=== PATIENT | male | born 1985 | race American Indian/Alaskan Native ===

== ENCOUNTER 2017-02-21 01:19 | Emergency (ER) | payer MEDICARE ==
[2017-02-21 01:19] VITALS: BMI 19.8
[2017-02-21 01:27] VITALS: RESP 18
--- NOTE | 2017-02-21 01:57 | ED PDOC ---
HPI: Psych/Substance Abuse Time Seen by Provider: 02/21/17 01:28 Chief Complaint (Nursing): Substance Abuse Chief Complaint (Provider): Medical evaluation Additional Complaint(s): The patient is a 31yo male, brought to the ED for evaluation s/p finding the patient sitting on the sidewalk. Patient admits to drinking beer earlier today and denies any drug usage. Patient offers no medical complaints at present. Past Medical History Reviewed: Historical Data, Nursing Documentation, Vital Signs Vital Signs: Last Vital Signs Temp 98.2 F 02/21/17 01:25 Pulse 136 H 02/21/17 01:25 Resp 18 02/21/17 01:25 BP 131/88 02/21/17 01:25 Pulse Ox 98 02/21/17 01:25 - Medical History PMH: Bipolar Disorder, Depression, Paranoia, Schizophrenia Denies: Alzheimer's Disease, Anemia, Anxiety, Arthritis, Asthma, Bronchitis, CAD, Cardia Arrhythmia, CHF, COPD, Crohn's Disease, Dementia, Diabetes, Diverticulitis, Emphysema, Fibromyalgia, Fractures, Gastrointestinal Ulcer, Gall Bladder Disease, Hepatitis, Hiatal Hernia, HIV, HTN, Hypercholesterolemia, Hyperthyroidism, Hypothyroidism, Kidney Stones, Migraine, Mitral Valve Prolapse , Osteoporosis, Pancreatitis, Parkinson's Disease, Peripheral Edema, Pneumonia, Post Traumatic Stress Disorder, Chronic Kidney Disease, Seizures, Sickle Cell Disease, Sexually Transmitted Disease, Sleep Apnea, TIA - Surgical History Surgical History: Denies: Appendectomy, Cholecystectomy, Coronary Stent, Pacemaker, Tonsillectomy - Family History Family History: States: Unknown Family Hx - Immunization History Hx Tetanus Toxoid Vaccination: Yes (3 months ago) - Home Medications Home Medications: Ambulatory Orders Medication Instructions Recorded No Known Home Med 06/29/16 - Allergies Allergies/Adverse Reactions: Allergies Allergy/AdvReac Type Severity Reaction Status Date / Time Penicillins Allergy RASH Verified 06/18/16 21:05 Review of Systems ROS Statement: Except As Marked, All Systems Reviewed And Found Negative Psych: Positive for: Other (admits to drinking beer earlier today) Physical Exam - Reviewed Vital Signs Reviewed: Yes - Physical Exam Appears: Positive for: Well, Non-toxic, No Acute Distress Head Exam: Positive for: ATRAUMATIC, NORMAL INSPECTION, NORMOCEPHALIC Skin: Positive for: Normal Color Eye Exam: Positive for: Normal appearance Neck: Positive for: Normal Cardiovascular/Chest: Positive for: Regular Rate, Rhythm Respiratory: Negative for: Respiratory Distress Neurologic/Psych: Positive for: Alert, Oriented, Mood/Affect (calm and cooperative), Gait (steady gait, no slurred speech). Negative for: Motor/ Sensory Deficits - ECG O2 Sat by Pulse Oximetry: 98 (RA) Pulse Ox Interpretation: Normal Medical Decision Making Medical Decision Making: Time: 0155 Impression: Medical evaluation Plan: * Patient with no clinical indication of acute intoxications. Patient with normal vital signs, is alert and oriented with steady gait. Based on clinical presentation, patient does not have any need for emergent care. * Will observe patient and re-check vitals. * Stable for discharge home. Scribe Attestation: Documented by Teresa Joyner, acting as a scribe for Renan Krishnan MD. Provider Scribe Attestation: All medical record entries made by the Scribe were at my direction and personally dictated by me. I have reviewed the chart and agree that the record accurately reflects my personal performance of the history, physical exam, medical decision making, and the department course for this patient. I have also personally directed, reviewed, and agree with the discharge instructions and disposition. Disposition - Clinical Impression Clinical Impression: Alcohol use Doctor Will See Patient In The: Office Counseled Patient/Family Regarding: Studies Performed, Diagnosis, Need For Followup - Disposition Referrals: [facility] [Outside] Disposition: Routine/Home Disposition Time: 02:28 Condition: GOOD Additional Instructions: Follow up with your PCP in 2-3 days. Instructions: Abuse of Alcohol (ED)
[2017-02-21 02:00] VITALS: BP 137/85; PULSE 101
[2017-02-21 02:01] VITALS: TEMP 98.2
[2017-02-21 02:29] VITALS: O2SAT 98
== END 2017-02-21 02:01 | disposition home or self-care (01) ==
LOC: H.ER 01:19
DX: F10.129 Alcohol abuse with intoxication, unspecified (principal); F20.9 Schizophrenia, unspecified; F31.9 Bipolar disorder, unspecified; Z88.0 Allergy status to penicillin

== ENCOUNTER 2017-03-02 14:57 | Emergency (ER) | payer MEDICARE ==
[2017-03-02 14:57] VITALS: BMI 19.8
[2017-03-02 15:20] VITALS: BP 125/71; PULSE 65; RESP 18; TEMP 98.2; O2SAT 99
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
[2017-03-02 16:08] LABS: BASO % 0.6 % (0.0-2.0); EOS # 0.1 K/uL (0.0-0.7); EOS % 2.2 % (0.0-4.0); HEMATOCRIT 41.2 % (35.0-51.0); LYMPH # 2.8 K/uL (1.0-4.3); LYMPH % 41.3 % (20.0-40.0); MEAN CELL VOLUME 94.3 fl (80.0-94.0); MEAN CORPUSCULAR HEMOGLOBIN 31.8 pg (27.0-31.0); MEAN CORPUSCULAR HGB CONC 33.7 g/dL (33.0-37.0); MONO # 0.9 K/uL (0.0-0.8); MONO % 13.2 % (0.0-10.0); NEUT # 2.9 K/uL (1.8-7.0); NEUT % 42.7 % (50.0-75.0); NRBC % 0.1 % (0.0-0.0); RED CELL DISTRIBUTION WIDTH 13.3 % (11.5-14.5); WHITE BLOOD COUNT 6.7 K/uL (4.8-10.8)
[2017-03-02 16:18] LABS: ALB/GLOB RATIO 1.4 (1.0-2.1); ALCOHOL SERUM < 10 mg/dl (0-10); ALKALINE PHOSPHATASE 113 U/L (38-126); ALT/SGPT 44 U/L (21-72); AST/SGOT 27 U/L (17-59); BILIRUBIN,TOTAL 0.9 mg/dl (0.2-1.3); BLOOD UREA NITROGEN 15 mg/dl (9-20); CALCIUM 9.4 mg/dL (8.4-10.2); CARBON DIOXIDE 31 mmol/L (22-30); CHLORIDE 101 mmol/L (98-107); GFR AFRICAN-AMERICAN > 60; GLUCOSE,RANDOM 89 mg/dL (75-110); POTASSIUM 4.2 MMOL/L (3.6-5.0); SODIUM 137 mmol/l (132-148); TOTAL PROTEIN 7.5 G/DL (6.3-8.2)
== END 2017-03-02 17:10 | disposition home or self-care (01) ==
LOC: H.ER 14:57
DX: F20.9 Schizophrenia, unspecified (principal); F31.9 Bipolar disorder, unspecified; Z88.0 Allergy status to penicillin
CPT/HCPCS: 80053; 85025; 99282; G0480

== ENCOUNTER 2017-10-06 02:08 | Emergency (ER) | payer MEDICARE ==
[2017-10-06 02:08] VITALS: BMI 19.8
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
[2017-10-06 04:22] LABS: BASO # 0.1 K/uL (0.0-0.2); BASO % 1.1 % (0.0-2.0); EOS # 0.1 K/uL (0.0-0.7); EOS % 1.3 % (0.0-4.0); HEMOGLOBIN 13.5 g/dL (12.0-18.0); LYMPH # 3.1 K/uL (1.0-4.3); LYMPH % 40.5 % (20.0-40.0); MEAN CELL VOLUME 93.4 fl (80.0-94.0); MEAN CORPUSCULAR HEMOGLOBIN 31.6 pg (27.0-31.0); MEAN CORPUSCULAR HGB CONC 33.8 g/dL (33.0-37.0); MEAN PLATELET VOLUME 9.2 fl (7.2-11.7); MONO # 1.1 K/uL (0.0-0.8); MONO % 13.9 % (0.0-10.0); NEUT # 3.3 K/uL (1.8-7.0); NEUT % 43.2 % (50.0-75.0); NRBC % 0.2 % (0.0-0.0); RBC 4.27 Mil/uL (4.40-5.90); WHITE BLOOD COUNT 7.7 K/uL (4.8-10.8)
[2017-10-06 04:31] LABS: ACETAMINOPHEN < 10.0 ug/ml (10.0-30.0); SALICYLATE < 1.0 mg/dl
[2017-10-06 04:32] LABS: BLOOD UREA NITROGEN 24 mg/dl (9-20); CALCIUM 9.8 mg/dL (8.4-10.2); GFR AFRICAN-AMERICAN > 60; GFR NON-AFRICAN AMERICAN > 60
[2017-10-06 05:58] LABS: SQUAMOUS EPITHIAL < 1 /hpf (0-5); URINE BACTERIA RARE (<OCC); URINE BILIRUBIN NEGATIVE (NEGATIVE); URINE BLOOD NEGATIVE (NEGATIVE); URINE CLARITY CLOUDY (Clear); URINE COLOR YELLOW (YELLOW); URINE GLUCOSE (UA) NEG (Normal); URINE LEUKOCYTE ESTERASE NEG Leu/uL (Negative); URINE NITRATE NEGATIVE (NEGATIVE); URINE PROTEIN 100 mg/dL (NEGATIVE); URINE UROBILINOGEN 0.2-1.0 mg/dL (0.2-1.0)
[2017-10-06 06:02] LABS: OPIATES, UR NEGATIVE (NEGATIVE)
[2017-10-06 06:09] LABS: BARBITURATES, UR NEGATIVE (NEGATIVE); BENZODIAZEPINES, UR NEGATIVE (NEGATIVE); PHENCYCLIDINE, UR NEGATIVE (NEGATIVE)
[2017-10-06] MEDS ORDERED: Sodium Chloride 0.9% 1,000 ML IV STA (06:41)
[2017-10-06 06:53] VITALS: O2SAT 98
--- NOTE | 2017-10-06 08:22 | ED PDOC ---
- Laboratory Results Result Diagrams: 10/06/17 04:12 10/06/17 04:12 Interpretation Of Abn Labs: amphetamines - ECG O2 Sat by Pulse Oximetry: 98 Pulse Ox Interpretation: Normal - Progress ED Course And Treament: 821: Stable. Alert. Pending crisis. Took over care from Dr. Tineo. 954: Stable. AAOx3. Pain free. Tolerated PO. Fu with pcp. Crisis saw pt. Does not meet criteria for admit. Disposition Counseled Patient/Family Regarding: Studies Performed, Diagnosis - Clinical Impression Clinical Impression: Schizophrenia, simple, Drug abuse - POA Present On Arrival: None - Disposition Referrals: [facility] [Outside] - 10/07/17 Disposition: Routine/Home Disposition Time: 09:56 Condition: STABLE Additional Instructions: Return if not better in 3 days. Instructions: Drug Abuse and Drug Addiction (DC), Schizophrenia
[2017-10-06 11:02] VITALS: BP 101/53; PULSE 99; RESP 20; TEMP 97.8
--- NOTE | 2017-10-07 12:13 | CARD ---
APPROVED REPORT EKG Measurement Heart [id number] <Conclusion> Normal sinus rhythm with sinus arrhythmia Normal ECG
== END 2017-10-06 10:10 | disposition home or self-care (01) ==
LOC: H.ER 02:08
DX: F20.9 Schizophrenia, unspecified (principal); F31.9 Bipolar disorder, unspecified; Z88.0 Allergy status to penicillin; F19.10 Other psychoactive substance abuse, uncomplicated
CPT/HCPCS: 80048; 81003; 85025; 93005; 96372; 99285; G0480; J1630; J7040

== ENCOUNTER 2017-10-06 21:04 | Emergency (ER) | payer MEDICARE ==
[2017-10-06 21:05] VITALS: BMI 19.8
[2017-10-06 21:18] VITALS: BP 132/89; PULSE 91; RESP 18; TEMP 98.5; O2SAT 97
--- NOTE | 2017-10-06 21:52 | ED PDOC ---
HPI: Psych/Substance Abuse Time Seen by Provider: 10/06/17 21:21 Chief Complaint (Nursing): Psychiatric Evaluation Chief Complaint (Provider): Suicidal ideation Suicide/Self Injury Attempted (Context): None Associated Symptoms: Suicidal Thoughts Additional Complaint(s): 31yo male, brought to ER by EMS for evaluation after patient expressed suicidal ideation. Patient reports he is feeling "suey" and when asked to explain further , he reports he is "feeling suicidal. He has no medical complaints. Past Medical History Reviewed: Historical Data, Nursing Documentation, Vital Signs Vital Signs: Last Vital Signs Temp 98.5 F 10/06/17 21:14 Pulse 91 H 10/06/17 21:14 Resp 18 10/06/17 21:14 BP 132/89 10/06/17 21:14 Pulse Ox 97 10/06/17 21:14 - Medical History PMH: Bipolar Disorder, Depression, Paranoia, Schizophrenia Denies: Alzheimer's Disease, Anemia, Anxiety, Arthritis, Asthma, Bronchitis, CAD, Cardia Arrhythmia, CHF, COPD, Crohn's Disease, Dementia, Diabetes, Diverticulitis, Emphysema, Fibromyalgia, Fractures, Gastrointestinal Ulcer, Gall Bladder Disease, Hepatitis, Hiatal Hernia, HIV, HTN, Hypercholesterolemia, Hyperthyroidism, Hypothyroidism, Kidney Stones, Migraine, Mitral Valve Prolapse , Osteoporosis, Pancreatitis, Parkinson's Disease, Peripheral Edema, Pneumonia, Post Traumatic Stress Disorder, Chronic Kidney Disease, Seizures, Sickle Cell Disease, Sexually Transmitted Disease, Sleep Apnea, TIA - Surgical History Surgical History: Denies: Appendectomy, Cholecystectomy, Coronary Stent, Pacemaker, Tonsillectomy - Family History Family History: States: Unknown Family Hx - Immunization History Hx Tetanus Toxoid Vaccination: Yes (3 months ago) - Home Medications Home Medications: Ambulatory Orders Medication Instructions Recorded No Known Home Med 06/29/16 - Allergies Allergies/Adverse Reactions: Allergies Allergy/AdvReac Type Severity Reaction Status Date / Time Penicillins Allergy RASH Verified 06/18/16 21:05 Review of Systems Cardiovascular: Negative for: Chest Pain Respiratory: Negative for: Shortness of Breath Gastrointestinal: Negative for: Abdominal Pain Psych: Positive for: Suicidal ideation Physical Exam - Reviewed Nursing Documentation Reviewed: Yes Vital Signs Reviewed: Yes - Physical Exam Appears: Positive for: No Acute Distress Head Exam: Positive for: NORMAL INSPECTION Skin: Positive for: Normal Color Eye Exam: Positive for: Normal appearance Neck: Positive for: Supple Cardiovascular/Chest: Positive for: Regular Rate, Rhythm Respiratory: Positive for: Normal Breath Sounds. Negative for: Respiratory Distress Neurologic/Psych: Positive for: Alert, Oriented - ECG O2 Sat by Pulse Oximetry: 97 (RA) Pulse Ox Interpretation: Normal Medical Decision Making Medical Decision Making: Impression: Suicidal ideation Plan: -- Crisis evaluation Scribe Attestation: Documented by Teresa Joyner acting as a scribe for BE Wilcox Provider Attestation: All medical record entries made by the Scribe were at my direction and personally dictated by me. I have reviewed the chart and agree that the record accurately reflects my personal performance of the history, physical exam, medical decision making, and the department course for this patient. I have also personally directed, reviewed, and agree with the discharge instructions and disposition. Disposition - Clinical Impression Clinical Impression: Schizoaffective disorder - Patient ED Disposition Is Patient to be Admitted: No - Disposition Disposition: Routine/Home Disposition Time: 22:12 Condition: GOOD Instructions: Schizoaffective Disorder Forms: [employer] (Slovak)
== END 2017-10-06 22:24 | disposition home or self-care (01) ==
LOC: H.ER 21:04
DX: R45.851 Suicidal ideations (principal); F25.9 Schizoaffective disorder, unspecified; F31.9 Bipolar disorder, unspecified; Z88.0 Allergy status to penicillin

== ENCOUNTER 2017-12-05 10:36 | Emergency (ER) | payer MEDICARE ==
[2017-12-05 11:07] VITALS: BMI 20.5
[2017-12-05 11:09] VITALS: BP 124/73; PULSE 107; RESP 17; TEMP 98.1; O2SAT 96
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
== END 2017-12-05 12:55 | disposition home or self-care (01) ==
LOC: H.ER 10:36
DX: S60.221A Contusion of right hand, initial encounter (principal); Y04.0XXA Assault by unarmed brawl or fight, initial encounter; Y92.89 Other specified places as the place of occurrence of the external cause; F20.9 Schizophrenia, unspecified; F31.9 Bipolar disorder, unspecified; Z88.0 Allergy status to penicillin

== ENCOUNTER 2017-12-07 20:07 | Emergency (ER) | payer MEDICARE ==
[2017-12-07 20:07] VITALS: BMI 20.5
[2017-12-07 20:16] VITALS: BP 132/85; RESP 18; TEMP 98.5
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
[2017-12-07 22:42] LABS: BARBITURATES, UR NEGATIVE (NEGATIVE); BENZODIAZEPINES, UR NEGATIVE (NEGATIVE); OPIATES, UR NEGATIVE (NEGATIVE); PHENCYCLIDINE, UR NEGATIVE (NEGATIVE)
[2017-12-07 23:29] VITALS: PULSE 85; O2SAT 97
== END 2017-12-07 23:53 | disposition home or self-care (01) ==
LOC: H.ER 20:07
DX: F20.9 Schizophrenia, unspecified (principal); F31.9 Bipolar disorder, unspecified; Z88.0 Allergy status to penicillin
CPT/HCPCS: 99283; G0480

== ENCOUNTER 2018-06-05 12:14 | Emergency (ER) | payer MEDICARE ==
[2018-06-05 12:15] VITALS: BMI 20.5
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
[2018-06-05 17:49] VITALS: BP 122/69; PULSE 95; RESP 18; TEMP 98.2; O2SAT 97
== END 2018-06-05 17:20 | disposition home or self-care (01) ==
LOC: H.ER 12:14
DX: F20.9 Schizophrenia, unspecified (principal); F43.20 Adjustment disorder, unspecified

== ENCOUNTER 2018-08-03 17:19 | Emergency (ER) | payer MEDICARE ==
[2018-08-03 17:26] VITALS: BMI 20.5
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
[2018-08-03 18:34] LABS: BASO # 0.1 K/uL (0.0-0.2); BASO % 1.1 % (0.0-2.0); EOS # 0.2 K/uL (0.0-0.7); EOS % 3.4 % (0.0-4.0); HEMOGLOBIN 12.1 g/dL (12.0-18.0); LYMPH # 2.1 K/uL (1.0-4.3); LYMPH % 33.3 % (20.0-40.0); MEAN CELL VOLUME 96.7 fl (80.0-94.0); MEAN CORPUSCULAR HEMOGLOBIN 32.3 pg (27.0-31.0); MEAN CORPUSCULAR HGB CONC 33.4 g/dL (33.0-37.0); MEAN PLATELET VOLUME 7.2 fl (7.2-11.7); MONO # 0.8 K/uL (0.0-0.8); MONO % 12.6 % (0.0-10.0); NEUT # 3.1 K/uL (1.8-7.0); NEUT % 49.6 % (50.0-75.0); NRBC % 0.1 % (0.0-0.0); RBC 3.73 Mil/uL (4.40-5.90); RED CELL DISTRIBUTION WIDTH 13.1 % (11.5-14.5); WHITE BLOOD COUNT 6.2 K/uL (4.8-10.8)
[2018-08-03 18:43] LABS: ALB/GLOB RATIO 1.2 (1.0-2.1); ALBUMIN 3.9 g/dL (3.5-5.0); ALT/SGPT 49 U/L (21-72); AST/SGOT 28 U/L (17-59); BLOOD UREA NITROGEN 21 mg/dl (9-20); CALCIUM 9.1 mg/dL (8.4-10.2); GFR NON-AFRICAN AMERICAN > 60
[2018-08-03 21:03] LABS: URINE BILIRUBIN NEGATIVE (NEGATIVE); URINE BLOOD NEGATIVE (NEGATIVE); URINE CLARITY CLEAR (Clear); URINE COLOR YELLOW (YELLOW); URINE GLUCOSE (UA) NEG (NEGATIVE); URINE LEUKOCYTE ESTERASE NEG Leu/uL (Negative); URINE PROTEIN NEGATIVE (NEGATIVE)
[2018-08-03 21:46] LABS: BARBITURATES, UR NEGATIVE (NEGATIVE); BENZODIAZEPINES, UR NEGATIVE (NEGATIVE); OPIATES, UR NEGATIVE (NEGATIVE); PHENCYCLIDINE, UR NEGATIVE (NEGATIVE)
--- NOTE | 2018-08-04 00:11 | ED PDOC ---
- Laboratory Results Result Diagrams: 08/03/18 18:28 08/03/18 18:28 - ECG O2 Sat by Pulse Oximetry: 97 (RA) Pulse Ox Interpretation: Normal Medical Decision Making Medical Decision Making: Case endorsed to telegraphic typewriter installer, Amador MENDES, at 0000 due to shift change. Patient pending [facility] screening. Patient medically cleared for psychiatric evaluation by [facility]. Patient resting comfortably at this time. 1:1 observation continued. 0200 Patient sleeping comfortably; no distress noted. 0400 Patient sleeping comfortably; no distress noted. 0600 Patient sleeping comfortably; no distress noted. Continuation of care per Dr Cameron Baca. 0700 Case endorsed to ED MD Tineo pending [facility] screening and further disposition. Disposition Counseled Patient/Family Regarding: Studies Performed, Diagnosis - Clinical Impression Clinical Impression: Patient needs psychiatric hold for evaluation, Schizoaffective disorder - POA Present On Arrival: None - Disposition Disposition: Transfer of Care (to ED MD Tineo pending [facility] screening and further disposition.) Disposition Time: 07:00 Condition: FAIR Results - Lab Results Lab Results: 08/03/18 08/03/18 08/03/18 20:45 20:45 18:28 WBC 6.2 RBC 3.73 L Hgb 12.1 Hct 36.1 MCV 96.7 H D MCH 32.3 H MCHC 33.4 RDW 13.1 Plt Count 301 MPV 7.2 Neut % (Auto) 49.6 L Lymph % (Auto) 33.3 [place] % (Auto) 12.6 H Eos % (Auto) 3.4 Baso % (Auto) 1.1 Neut # (Auto) 3.1 Lymph # (Auto) 2.1 [place] # (Auto) 0.8 Eos # (Auto) 0.2 Baso # (Auto) 0.1 Sodium Potassium Chloride Carbon Dioxide Anion Gap BUN Creatinine Est GFR ( Amer) Est GFR (Non-Af Amer) Random Glucose Calcium Total Bilirubin AST ALT Alkaline Phosphatase Total Protein Albumin Globulin Albumin/Globulin Ratio Urine Color Yellow Urine Clarity Clear Urine pH 7.0 Ur Specific [place] 1.027 Urine Protein Negative Urine Glucose (UA) Neg Urine Ketones Negative Urine Blood Negative Urine Nitrate Negative Urine Bilirubin Negative Urine Urobilinogen 4.0 Ur Leukocyte Esterase Neg Urine RBC (Auto) 3 Urine Microscopic WBC 2 Urine Opiates Screen Negative Urine Methadone Screen Negative Ur Barbiturates Screen Negative Ur Phencyclidine Scrn Negative Ur Amphetamines Screen Negative U Benzodiazepines Scrn Negative U Oth Cocaine Metabols Negative U Cannabinoids Screen Negative Alcohol, Quantitative 08/03/18 18:28 WBC RBC Hgb Hct MCV MCH MCHC RDW Plt Count MPV Neut % (Auto) Lymph % (Auto) [place] % (Auto) Eos % (Auto) Baso % (Auto) Neut # (Auto) Lymph # (Auto) [place] # (Auto) Eos # (Auto) Baso # (Auto) Sodium 144 Potassium 4.2 Chloride 106 Carbon Dioxide 29 Anion Gap 13 BUN 21 H Creatinine 0.9 Est GFR ( Amer) > 60 Est GFR (Non-Af Amer) > 60 Random Glucose 90 Calcium 9.1 Total Bilirubin 0.4 AST 28 ALT 49 Alkaline Phosphatase 168 H Total Protein 7.1 Albumin 3.9 Globulin 3.3 Albumin/Globulin Ratio 1.2 Urine Color Urine Clarity Urine pH Ur Specific [place] Urine Protein Urine Glucose (UA) Urine Ketones Urine Blood Urine Nitrate Urine Bilirubin Urine Urobilinogen Ur Leukocyte Esterase Urine RBC (Auto) Urine Microscopic WBC Urine Opiates Screen Urine Methadone Screen Ur Barbiturates Screen Ur Phencyclidine Scrn Ur Amphetamines Screen U Benzodiazepines Scrn U Oth Cocaine Metabols U Cannabinoids Screen Alcohol, Quantitative < 10
--- NOTE | 2018-08-04 10:43 | CP.PCM.CON ---
History of Present Illness - History of Present Illness History of Present Illness: Psychiatry consult note CC: "I was talking to the birds." HPI: 32 yo male w/ h/o schizoaffective disorder, presents acutely disorganized, bizarre, psychotic, reports that he was brought to the hospital for talking to pigeons. Patient is a poor historian and has been non-compliant with treatment and medications. Additional history from the chart: 32 year old Black male presenting to the ED after [place] Pt was noted to be making bizarre statements and arguing with a bystander. Pt has a hx of Schizoaffective Disorder. Pt is uncooperative in the ED and refuses respond to questions. When pt did speak, his statements were disorganized, tangential, and illogical. Pt also defecated and urinated in his room in the ED. Pts thought process is blocked. Crisis is unable to assess presence of SI/HI, as pt refused to respond to any questions. Pt has hx of fleeting SI without plan or intent, however pt has no hx of suicide attempts or self harm. Pt admits to smoking marijuana about 2 days ago, however denies alcohol use. Pts BAL is negative. Pt has hx of past amphetamine and MDMA use. Pt was recently discharged from [facility] on 07/29/18 following 7 days of inpatient treatment. Pt is homeless and estranged from his family. Pt does not present with aggressive behaviors while in the ED. Pts mood is apathetic, affect is flat. Pt is alert, coherent, however presents with flight of ideas and disorientation. Pts speech is mumbled and difficult to understand. Pts hygiene and grooming is poor. ALL: PCN Impression: 32 yo male w/ schizoaffective disorder, presents acutely decompensated and psychotic, screened and accepted for involuntary psychiatric admission. -Transfer to [facility] [place] when bed is available -Zyprexa 10 mg PO stat -Haldol 5 mg PO/IM Q8HR PRN Agitation; Ativan 2 mg PO/IM Q8HR PRN Agitation; Benadryl 50 mg PO/IM Q8HR PRN Agitation Past Patient History - Infectious Disease Hx of Infectious Diseases: None - Tetanus Immunizations Tetanus Immunization: Unknown - Past Social History Alcohol: None Drugs: Cannabis (2x days ago) - CARDIAC Hx Cardia Arrhythmia: No Hx Congestive Heart Failure: No Hx Hypercholesterolemia: No Hx Hypertension: No Hx Mitral Valve Prolapse: No Hx Pacemaker: No Hx Peripheral Edema: No - PULMONARY Hx Asthma: No Hx Bronchitis: No Hx Chronic Obstructive Pulmonary Disease (COPD): No Hx Emphysema: No Hx Pneumonia: No Hx Sleep Apnea: No - NEUROLOGICAL Hx Alzheimer's Disease: No Hx Dementia: No Hx Migraine: No Hx Parkinson's Disease: No Hx Seizures: No Hx Transient Ischemic Attacks (TIA): No - HEENT Hx HEENT Problems: No - RENAL Hx Chronic Kidney Disease: No Hx Kidney Stones: No - ENDOCRINE/METABOLIC Hx Hyperthyroidism: No Hx Hypothyroidism: No - HEMATOLOGICAL/ONCOLOGICAL Hx Anemia: No Hx Human Immunodeficiency Virus (HIV): No Hx Sickle Cell Disease: No - INTEGUMENTARY Hx Dermatological Problems: No - MUSCULOSKELETAL/RHEUMATOLOGICAL Hx Arthritis: No Hx Fractures: No Hx Osteoporosis: No - GASTROINTESTINAL Hx Crohn's Disease: No Hx Diverticulitis: No Hx Gall Bladder Disease: No Hx Pancreatitis: No - GENITOURINARY/GYNECOLOGICAL Hx Sexually Transmitted Disorders: No - PSYCHIATRIC Hx Anxiety: No Hx Bipolar Disorder: Yes Hx Depression: Yes Hx Paranoia: Yes Hx Post Traumatic Stress Disorder: No Hx Schizophrenia: Yes - SURGICAL HISTORY Hx Appendectomy: No Hx Cholecystectomy: No Hx Coronary Stent: No Hx Tonsillectomy: No - ANESTHESIA Hx Anesthesia: No Meds Allergies/Adverse Reactions: Allergies Allergy/AdvReac Type Severity Reaction Status Date / Time Penicillins Allergy RASH Verified 07/21/18 12:37 Results - Vital Signs Recent Vital Signs: Last Vital Signs Temp 97.5 F L 08/04/18 00:20 Pulse 98 H 08/04/18 07:00 Resp 18 08/04/18 07:00 BP 116/64 08/04/18 07:00 Pulse Ox 97 08/04/18 07:00 - Labs Result Diagrams: 08/03/18 18:28 08/03/18 18:28 Labs: Laboratory Results - last 24 hr 08/03/18 08/03/18 08/03/18 18:28 18:28 20:45 WBC 6.2 RBC 3.73 L Hgb 12.1 Hct 36.1 MCV 96.7 H D MCH 32.3 H MCHC 33.4 RDW 13.1 Plt Count 301 MPV 7.2 Neut % (Auto) 49.6 L Lymph % (Auto) 33.3 [place] % (Auto) 12.6 H Eos % (Auto) 3.4 Baso % (Auto) 1.1 Neut # (Auto) 3.1 Lymph # (Auto) 2.1 [place] # (Auto) 0.8 Eos # (Auto) 0.2 Baso # (Auto) 0.1 Sodium 144 Potassium 4.2 Chloride 106 Carbon Dioxide 29 Anion Gap 13 BUN 21 H Creatinine 0.9 Est GFR ( Amer) > 60 Est GFR (Non-Af Amer) > 60 Random Glucose 90 Calcium 9.1 Total Bilirubin 0.4 AST 28 ALT 49 Alkaline Phosphatase 168 H Total Protein 7.1 Albumin 3.9 Globulin 3.3 Albumin/Globulin Ratio 1.2 Urine Color Urine Clarity Urine pH Ur Specific [place] Urine Protein Urine Glucose (UA) Urine Ketones Urine Blood Urine Nitrate Urine Bilirubin Urine Urobilinogen Ur Leukocyte Esterase Urine RBC (Auto) Urine Microscopic WBC Urine Opiates Screen Negative Urine Methadone Screen Negative Ur Barbiturates Screen Negative Ur Phencyclidine Scrn Negative Ur Amphetamines Screen Negative U Benzodiazepines Scrn Negative U Oth Cocaine Metabols Negative U Cannabinoids Screen Negative Alcohol, Quantitative < 10 08/03/18 20:45 WBC RBC Hgb Hct MCV MCH MCHC RDW Plt Count MPV Neut % (Auto) Lymph % (Auto) [place] % (Auto) Eos % (Auto) Baso % (Auto) Neut # (Auto) Lymph # (Auto) [place] # (Auto) Eos # (Auto) Baso # (Auto) Sodium Potassium Chloride Carbon Dioxide Anion Gap BUN Creatinine Est GFR ( Amer) Est GFR (Non-Af Amer) Random Glucose Calcium Total Bilirubin AST ALT Alkaline Phosphatase Total Protein Albumin Globulin Albumin/Globulin Ratio Urine Color Yellow Urine Clarity Clear Urine pH 7.0 Ur Specific [place] 1.027 Urine Protein Negative Urine Glucose (UA) Neg Urine Ketones Negative Urine Blood Negative Urine Nitrate Negative Urine Bilirubin Negative Urine Urobilinogen 4.0 Ur Leukocyte Esterase Neg Urine RBC (Auto) 3 Urine Microscopic WBC 2 Urine Opiates Screen Urine Methadone Screen Ur Barbiturates Screen Ur Phencyclidine Scrn Ur Amphetamines Screen U Benzodiazepines Scrn U Oth Cocaine Metabols U Cannabinoids Screen Alcohol, Quantitative
--- NOTE | 2018-08-04 11:17 | RAD ---
Date of service: 08/04/2018 HISTORY: psych complaint COMPARISON: No prior. FINDINGS: LUNGS: No active pulmonary disease. PLEURA: No significant pleural effusion identified, no pneumothorax apparent. Suspect minimal biapical pleural thickening CARDIOVASCULAR: No aortic atherosclerotic calcification present. Normal cardiac size. No pulmonary vascular congestion. OSSEOUS STRUCTURES: No significant abnormalities. VISUALIZED UPPER ABDOMEN: Normal. OTHER FINDINGS: None. IMPRESSION: No active disease.
--- NOTE | 2018-08-04 16:21 | ED PDOC ---
- Laboratory Results Result Diagrams: 08/03/18 18:28 08/03/18 18:28 - ECG O2 Sat by Pulse Oximetry: 97 Pulse Ox Interpretation: Normal Medical Decision Making Medical Decision Makin Patient endorsed to me by Dr. Alegria [place] [facility] [place] 1000 [place] accepted [place] [facility] [place] Dr. Velasquez 1200 Patient medically cleared for transfer 1700 Pending bed availability at [facility] [place]ors[place] Dr. Scott Patient sleeping, calm, cooperative Disposition - Clinical Impression Clinical Impression: Patient needs psychiatric hold for evaluation, Schizoaffective disorder - POA Present On Arrival: None - Disposition Disposition: Transfer of Care Disposition Time: 17:00 Condition: FAIR Patient Signed Over To: Dalia Scott Handoff Comments: pending [facility] [place]
--- NOTE | 2018-08-05 02:51 | CARD ---
APPROVED REPORT Date of service: 08/04/2018 EKG Measurement Heart [id number] <Conclusion> Normal sinus rhythm Early repolarization Borderline ECG
--- NOTE | 2018-08-05 04:13 | ED PDOC ---
- Laboratory Results Result Diagrams: 08/03/18 18:28 08/03/18 18:28 - ECG O2 Sat by Pulse Oximetry: 98 (RA) Pulse Ox Interpretation: Normal Medical Decision Making Medical Decision Making: Time: 0400 -- Patient endorsed to me by Dr. Scott, pending [facility] [place]. Time: 0700 pt resting in no distress. -- Patient endorsed to Dr. Monroy, pending [facility] [place]. Scribe Attestation: Documented by Len Padilla, acting as a scribe for Vineet Latif MD. Provider Scribe Attestation: All medical record entries made by the Scribe were at my direction and personally dictated by me. I have reviewed the chart and agree that the record accurately reflects my personal performance of the history, physical exam, medi nola decision making, and the department course for this patient. I have also personally directed, reviewed, and agree with the discharge instructions and disposition. Disposition - Clinical Impression Clinical Impression: Patient needs psychiatric hold for evaluation, Schizoaffective disorder - POA Present On Arrival: None - Disposition Disposition: Transfer of Care Disposition Time: 07:00 Condition: STABLE Forms: [employer] (Slovenian) Patient Signed Over To: Shannon Monroy
--- NOTE | 2018-08-05 07:36 | ED PDOC ---
- Laboratory Results Result Diagrams: 08/03/18 18:28 08/03/18 18:28 - ECG O2 Sat by Pulse Oximetry: 97 Medical Decision Making Medical Decision Making: Time: 0700 --Patient endorsed to provider by Dr. Latif, pending [facility] bed availability. Scribe Attestation: Documented by Kaylah Burnham, acting as a scribe for Shannon Monroy MD. Provider Scribe Attestation: All medical record entries made by the Scribe were at my direction and personally dictated by me. I have reviewed the chart and agree that the record accurately reflects my personal performance of the history, physical exam, medical decision making, and the department course for this patient. I have also personally directed, reviewed, and agree with the discharge instructions and disposition. patient has been calm and cooperative since this morning. Disposition - Clinical Impression Clinical Impression: Patient needs psychiatric hold for evaluation, Schizoaffective disorder - POA Present On Arrival: None - Disposition Disposition: Other Institution Disposition Time: 13:30 Condition: STABLE Forms: [email or web address] (Romansh)
--- NOTE | 2018-08-05 10:36 | CP.PCM.CON ---
History of Present Illness - History of Present Illness History of Present Illness: Psychiatry consult note CC: "I was talking to the birds." HPI: 32 yo male w/ h/o schizoaffective disorder, continues to be acutely dis organized, bizarre, psychotic, reports that he was brought to the hospital for talking to pigeons. Patient is a poor historian and has been non-compliant with treatment and medications. Additional history from the chart: 32 year old Black male presenting to the ED [place] Pt was noted to be making bizarre statements and arguing with a bystander. Pt has a hx of Schizoaffective Disorder. Pt is uncooperative in the ED and refuses respond to questions. When pt did speak, his statements were disorganized, tangential, and illogical. Pt also defecated and urinated in his room in the ED. Pts thought process is blocked. Crisis is unable to assess presence of SI/HI, as pt refused to respond to any questions. Pt has hx of fleeting SI without plan or intent, however pt has no hx of suicide attempts or self harm. Pt admits to smoking marijuana about 2 days ago, however denies alcohol use. Pts BAL is negative. Pt has hx of past amphetamine and MDMA use. Pt was recently discharged from [facility] on 07/29/18 following 7 days of inpatient treatment. Pt is homeless and estranged from his family. Pt does not present with aggressive behaviors while in the ED. Pts mood is apathetic, affect is flat. Pt is alert, coherent, however presents with flight of ideas and disorientation. Pts speech is mumbled and difficult to understand. Pts hygiene and grooming is poor. ALL: PCN Impression: 32 yo male w/ schizoaffective disorder, presents acutely decompensated and psychotic, screened and accepted for involuntary psychiatric admission. -Transfer [place] [facility] [place] psychiatric [place] -Zyprexa 10 mg PO stat -Haldol 5 mg PO/IM Q8HR PRN Agitation; Ativan 2 mg PO/IM Q8HR PRN Agitation; Benadryl 50 mg PO/IM Q8HR PRN Agitation -PC completed by technical report writer >35 minutes spent on case Past Patient History - Infectious Disease Hx of Infectious Diseases: None - Tetanus Immunizations Tetanus Immunization: Unknown - Past Social History Alcohol: None Drugs: Cannabis (2x days ago) - CARDIAC Hx Cardia Arrhythmia: No Hx Congestive Heart Failure: No Hx Hypercholesterolemia: No Hx Hypertension: No Hx Mitral Valve Prolapse: No Hx Pacemaker: No Hx Peripheral Edema: No - PULMONARY Hx Asthma: No Hx Bronchitis: No Hx Chronic Obstructive Pulmonary Disease (COPD): No Hx Emphysema: No Hx Pneumonia: No Hx Sleep Apnea: No - NEUROLOGICAL Hx Alzheimer's Disease: No Hx Dementia: No Hx Migraine: No Hx Parkinson's Disease: No Hx Seizures: No Hx Transient Ischemic Attacks (TIA): No - HEENT Hx HEENT Problems: No - RENAL Hx Chronic Kidney Disease: No Hx Kidney Stones: No - ENDOCRINE/METABOLIC Hx Hyperthyroidism: No Hx Hypothyroidism: No - HEMATOLOGICAL/ONCOLOGICAL Hx Anemia: No Hx Human Immunodeficiency Virus (HIV): No Hx Sickle Cell Disease: No - INTEGUMENTARY Hx Dermatological Problems: No - MUSCULOSKELETAL/RHEUMATOLOGICAL Hx Arthritis: No Hx Fractures: No Hx Osteoporosis: No - GASTROINTESTINAL Hx Crohn's Disease: No Hx Diverticulitis: No Hx Gall Bladder Disease: No Hx Pancreatitis: No - GENITOURINARY/GYNECOLOGICAL Hx Sexually Transmitted Disorders: No - PSYCHIATRIC Hx Anxiety: No Hx Bipolar Disorder: Yes Hx Depression: Yes Hx Paranoia: Yes Hx Post Traumatic Stress Disorder: No Hx Schizophrenia: Yes - SURGICAL HISTORY Hx Appendectomy: No Hx Cholecystectomy: No Hx Coronary Stent: No Hx Tonsillectomy: No - ANESTHESIA Hx Anesthesia: No Meds Allergies/Adverse Reactions: Allergies Allergy/AdvReac Type Severity Reaction Status Date / Time Penicillins Allergy RASH Verified 07/21/18 12:37 Results - Vital Signs Recent Vital Signs: Last Vital Signs Temp 98 F 08/05/18 08:06 Pulse 102 H 08/05/18 08:06 Resp 20 08/05/18 08:06 BP 110/72 08/05/18 08:06 Pulse Ox 97 08/05/18 08:06 - Labs Result Diagrams: 08/03/18 18:28 08/03/18 18:28
[2018-08-05 12:12] VITALS: RESP 18; TEMP 98.3
[2018-08-05 14:43] VITALS: BP 121/69
[2018-08-05 14:47] VITALS: PULSE 69
[2018-08-06 00:01] VITALS: O2SAT 98
== END 2018-08-05 14:30 | disposition short-term general hospital (02) ==
LOC: H.ER 17:19
DX: F25.9 Schizoaffective disorder, unspecified (principal); Z86.59 Personal history of other mental and behavioral disorders; Z59.0 Homelessness; Z88.0 Allergy status to penicillin; Z91.19 Patient's noncompliance with other medical treatment and regimen; Z00.8 Encounter for other general examination
CPT/HCPCS: 80053; 81003; 85025; 93005; 96372; 99285; G0480; J1630; J2060